=== PATIENT | female | born 1975 | race Caucasian/White ===

== ENCOUNTER 2017-01-21 18:39 | Emergency (ER) | payer MEDICAID ==
--- NOTE | ~2017-01-21 | ENPV ---
Vascular Lower Extremities DVT Study Procedure Demographics Patient Name JOHAN GUTHRIE Date of Study 01/21/2017 Patient Number [id number] Gender Female Date of 1975 Age 41 Visit Number [id number] Height Accession Number [id number] Weight Room Number BSA BMI Referring Saroj Lindsay MD Interpreting Mayito Littlejohn MD Physician Physician Physician Ordering Physician Kimberlee Pang MD Quill Worker Raw Sampler Missy Painting T, [facility] [place] Conclusions Summary Normal venous duplex examination of the legs bilaterally with normal venous Doppler signals noted throughout. No evidence of thrombophlebitis is noted bilaterally in the deep and superficial veins of the legs. Small calf thrombi cannot be excluded. Procedure Type of Study: Veins:Lower Extremities DVT Study, Venous Duplex Lower Extremity Bilateral. Appropriate Use Criteria:5 Patient Status:STAT. Study Location:ER. Technical Quality:Adequate visualization. - Preliminary reported to:Dr. Mohan. Velocities are measured in cm/s ; Diameters are measured in cm Right Lower Extremities DVT Study Measurements Right 2D and Doppler Measurements + + + + +------+------+ + !Location !Visualized!Compressibility!Thrombosis!Signal!Reflux!Reflux ! ! ! ! ! ! ! !(sec) ! + + + + +------+------+ + !GSV Thigh !Yes !Yes !None !Phasic! ! ! + + + + +------+------+ + !Common !Yes !Yes !None !Phasic! ! ! !Femoral ! ! ! ! ! ! ! + + + + +------+------+ + !Prox !Yes !Yes !None !Phasic! ! ! !Femoral ! ! ! ! ! ! ! + + + + +------+------+ + !Mid Femoral!Yes !Yes !None !Phasic! ! ! + + + + +------+------+ + !Dist !Yes !Yes !None !Phasic! ! ! !Femoral ! ! ! ! ! ! ! + + + + +------+------+ + !Popliteal !Yes !Yes !None !Phasic! ! ! + + + + +------+------+ + !PTV !Yes !Yes !None !Phasic! ! ! + + + + +------+------+ + !Peroneal !Yes !Yes !None !Phasic! ! ! + + + + +------+------+ + Left Lower Extremities DVT Study Measurements Left 2D and Doppler Measurements + + + + +------+------+ + !Location !Visualized!Compressibility!Thrombosis!Signal!Reflux!Reflux ! ! ! ! ! ! ! !(sec) ! + + + + +------+------+ + !GSV Thigh !Yes !Yes !None !Phasic! ! ! + + + + +------+------+ + !Common !Yes !Yes !None !Phasic! ! ! !Femoral ! ! ! ! ! ! ! + + + + +------+------+ + !Prox !Yes !Yes !None !Phasic! ! ! !Femoral ! ! ! ! ! ! ! + + + + +------+------+ + !Mid Femoral!Yes !Yes !None !Phasic! ! ! + + + + +------+------+ + !Dist !Yes !Yes !None !Phasic! ! ! !Femoral ! ! ! ! ! ! ! + + + + +------+------+ + !Popliteal !Yes !Yes !None !Phasic! ! ! + + + + +------+------+ + !PTV !Yes !Yes !None !Phasic! ! ! + + + + +------+------+ + !Peroneal !Yes !Yes !None !Phasic! ! ! + + + + +------+------+ + Signature dtt: GABBI PAIGE dtd: 01/21/172025 Physician Self Edit
--- NOTE | ~2017-01-21 | ER ---
PATIENT'S NAME: JOHAN GUTHRIE [facility] AGE: 41 Y [address] ROOM: [place] [address] LOCATION: ED ADMIT DATE: 01/21/2017 ER/Outpatient Report DISCHARGE DATE: 01/21/2017 FAMILY PHYSICIAN: Brian Kyle MD ATTENDING PHYSICIAN: Bird Mohan Time of Arrival: 1839 hours. Time of Evaluation: 1842 hours. CHIEF COMPLAINT: Shortness of breath and cough. HISTORY OF PRESENT ILLNESS: The patient is a 41-year-old female who presents to the Emergency Department today with a chief complaint of shortness of breath and cough. She also complains of chest pain in the center of her chest, it is worse when she coughs, it feels like a tightness. She reports some nausea, no vomiting. Denies any fevers or chills. She reports that the cough has been going on for more than a month now. She has been on azithromycin as well as Levaquin and multiple steroids without any relief. Denies any headache. No back pain. No abdominal pain. PAST MEDICAL HISTORY: Bipolar, hypertension, asthma, and migraines. PAST SURGICAL HISTORY: Appendectomy, x3, and ankle. SOCIAL HISTORY: The patient smokes for 34 years. Denies any alcohol or illicit drug use. ALLERGIES: ALLERGIES TO PENICILLIN, CEPHALOSPORINS, NSAIDS, ANTACIDS, ASPIRIN, AND GI MEDS. MEDICATIONS: 1. Albuterol. 2. Advair. 3. Combivent. 4. Invega. 5. Singulair. 6. Benadryl. PRIMARY CARE DOCTOR: Brian Kyle MD. PATIENT'S NAME: JOHAN GUTHRIE [facility] AGE: 41 Y [address] ROOM: [place] [address] LOCATION: ED ADMIT DATE: 01/21/2017 ER/Outpatient Report DISCHARGE DATE: 01/21/2017 FAMILY PHYSICIAN: Brian Kyle MD ATTENDING PHYSICIAN: Bird Mohan REVIEW OF SYSTEMS: All systems are reviewed by myself and are negative with the exception of those discussed in HPI and past medical history. PHYSICAL EXAMINATION: VITAL SIGNS: Weight 158.2, blood pressure 191/62, pulse 96, respiratory rate 20, temperature 98.7, and oxygen saturation 98% on room air. GENERAL: The patient is a 41-year-old female, appears stated age, obese, in no acute distress at this time. HEENT: Normocephalic, atraumatic. Pupils are equal, round, and reactive to light. Nares with clear discharge bilaterally. TMs are clear. Oropharynx is clear. NECK: Supple. There is no nuchal rigidity. CARDIOVASCULAR: Regular rate and rhythm. No murmurs, rubs, or gallops. LUNGS: With mild to moderate expiratory wheezes diffusely bilaterally. ABDOMEN: Soft, nontender, and nondistended. No rebound, rigidity, or guarding. Positive bowel sounds. MUSCULOSKELETAL: The patient moves all 4 extremities. SKIN: Warm and dry with no rashes or lesions noted. LABORATORY DATA AND X-RAYS: Labs and x-rays are obtained. CBC is normal. Coags are normal. D-dimer is 0.91. CMP is normal. LFTs normal. Magnesium is normal. Cardiac enzymes are normal. EKG is obtained and is interpreted by myself at 1926 hours shows sinus rhythm with a rate of 97, normal axis, normal interval. No ST elevation, ST depression, or T-wave inversions. ProBNP is 242. CT scan of the chest was obtained, PE study, I have discussed the results with the radiologist shows no evidence of PE. There is bronchial wall thickening noted. Bilateral venous Dopplers are negative for DVT. IMPRESSION: 1. Acute on chronic bronchitis. 2. Chest pain, likely secondary to acute on chronic bronchitis. 3. Initial visit. EMERGENCY DEPARTMENT COURSE: The patient was brought back to the examination room. Seen and evaluated by myself. IV is established. Laboratory analysis, imaging, and EKG are obtained as described above. The patient is given a DuoNeb breathing treatment. She is given 125 mg of Solu-Medrol IV. This has resulted in improvement of the patient's symptoms. I have discussed the results with the patient. I have recommended a close followup with Dr. Brian Kyle in 2-3 days for reevaluation. I have also asked she follows up with a welding production supervisor, she is to call for an appointment. I have written a prescription for PATIENT'S NAME: JOHAN GUTHRIE [facility] AGE: 41 Y [address] ROOM: [place] [address] LOCATION: ED ADMIT DATE: 01/21/2017 ER/Outpatient Report DISCHARGE DATE: 01/21/2017 FAMILY PHYSICIAN: Brian Kyle MD ATTENDING PHYSICIAN: Bird Mohan prednisone as well as Phenergan with codeine. I have discussed return to care instructions including worsening symptoms or any other concerns, return to the emergency department as soon as possible. The patient is agreeable without further questions. DISPOSITION: The patient discharged home in good condition. DO JACINTA RUDOLPH/modl /[id number] d: 01/22/17 0357 t: 01/25/17 1810, OUTPATIENT REPORT
[2017-01-21 19:15] LABS: BASOPHIL # 0.1 K/uL (0.0-0.2); EOSINOPHIL # 0.3 K/uL (0.0-0.5); EOSINOPHIL % 3.7 %; HEMATOCRIT 42.8 % (33.0-46.0); HEMOGLOBIN 14.2 g/dL (10.0-15.0); IMMATURE GRANULOCYTE % 0.5 %; LYMPHOCYTE # 1.9 K/uL (0.8-4.0); LYMPHOCYTE % 23.6 %; MCH 30.3 pg (27.0-34.0); MCHC 33.2 gm/dL (32.0-36.5); MCV 91.3 fl (83.0-98.0); MONOCYTE # 0.6 K/uL (0.0-1.0); MONOCYTE % 7.8 %; MPV 10.3 fl (9.4-12.4); NEUTROPHIL % 63.4 %; NRBC % 0 /100WBC (0-0.00); PLATELET COUNT 291 K/uL (150-450); RBC 4.69 M/uL (3.50-5.50); RDW-CV 14.9 % (11.9-14.6); WBC 7.9 K/uL (4.0-11.0)
[2017-01-21 19:27] LABS: PROTIME 9.4 SECONDS (9.8-11.4); PTT 32 SECONDS (25-32)
[2017-01-21 19:34] LABS: ALBUMIN 3.3 gm/dL (3.5-5.0); ALK PHOS 84 IU/L (33-138); ALT 27 IU/L (12-78); AST 20 IU/L (10-40); BLOOD UREA NITROGEN 11 mg/dL (6-24); CALCIUM 8.8 mg/dL (8.5-10.5); CHLORIDE 108 mMol/L (96-110); CO2 28 mMol/L (22-32); CPK 118 IU/L (21-215); CREATININE 0.9 mg/dL (0.5-1.1); ESTIMATED GFR (MDRD EQUATION) > 60; MAGNESIUM 2.1 mg/dL (1.8-2.6); SODIUM 144 mMol/L (135-145); TOTAL BILIRUBIN 0.2 mg/dL (0.0-1.5); TOTAL PROTEIN 7.2 g/dL (6.0-8.4)
[2017-03-11] MEDS ORDERED: NORCO 10-325 T1 EACH PO (08:30)
[2017-03-11] MEDS ORDERED: KLONOPIN1 MG PO (08:52)
[2017-03-11] MEDS ORDERED: SINGULAIR10 MG PO (08:53)
[2017-03-11] MEDS ORDERED: PROVENTIL OR V6.7 GM INH (08:53)
[2017-03-11] MEDS ORDERED: FLEXERIL10 MG PO (08:53)
[2017-03-11] MEDS ORDERED: ADVAIR 500-501 EACH INH (08:53)
[2017-03-11] MEDS ORDERED: CPAP INH (08:55)
[2017-03-11] MEDS ORDERED: INVEGA9 MG PO (09:10)
[2017-03-11] MEDS ORDERED: IMITREX100 MG PO (09:10)
[2017-03-11] MEDS ORDERED: COMBIVENT RESPIM4 GM INH (09:10)
[2017-03-11] MEDS ORDERED: ALBUTEROL2.5 MG/31 INH (09:12)
[2017-03-11] MEDS ORDERED: NIZORAL120 ML TOP (09:14)
== END 2017-01-21 21:27 | disposition disaster alternative care site (69) ==
LOC: GMED 18:39
PROVIDERS: Emergency Medicine
DX: J20.9 Acute bronchitis, unspecified (principal); J42 Unspecified chronic bronchitis; R07.9 Chest pain, unspecified; F31.9 Bipolar disorder, unspecified; I10 Essential (primary) hypertension; J45.909 Unspecified asthma, uncomplicated; Z90.49 Acquired absence of other specified parts of digestive tract; Z98.890 Other specified postprocedural states; Z88.1 Allergy status to other antibiotic agents; Z88.8 Allergy status to other drugs, medicaments and biological substances; Z88.0 Allergy status to penicillin; Z79.899 Other long term (current) drug therapy
CPT/HCPCS: J2930; Q9967

== ENCOUNTER 2017-02-19 07:32 | Emergency (ER) | payer MEDICAID ==
--- NOTE | ~2017-02-19 | ER ---
PATIENT'S NAME: JOHAN [facility] AGE: 41 Y [address] ROOM: [place] [address] LOCATION: ED ADMIT DATE: 02/19/2017 ER/Outpatient Report DISCHARGE DATE: 02/19/2017 FAMILY PHYSICIAN: Brian Kyle MD ATTENDING PHYSICIAN: Soraya Daniels Time of arrival: 0732 hours. Time of Evaluation: 0750 hours. IDENTIFICATION: A 41-year-old female. CHIEF COMPLAINT: Back pain. HISTORY OF PRESENT ILLNESS: The patient is a 41-year-old female, who lives in [place] but sees Dr. Brian Kyle, who presents with back pain that she has had since Thursday. She was seen in the emergency room in [place] and given Percocet. Continues to have 10/10 constant low back pain. Radiates slightly to both sides. No dysuria. No increased frequency of urination. No numbness, tingling, or weakness. No injury. The patient has pain that radiates down her left leg. ALLERGIES: THE PATIENT WAS NOT AWARE OF ALLERGIES OR HER MEDICATION LIST. SHE TOLD US TO LOOK IT UP. OLD RECORDS REFLECT ALLERGIES TO PENICILLIN, CEPHALOSPORINS, NON- STEROIDALS, ANTACIDS, ASPIRIN, AND SOME SORT OF GI MEDICATION. SHE SAID SHE KNOWS SHE IS ALLERGIC TO TORADOL, DARVOCET, AND ULTRAM. CURRENT MEDICATIONS: 1. Percocet. 2. Norflex. 3. Albuterol. 4. Advair. 5. Combivent. 6. Invega. 7. Singulair. 8. Benadryl. MEDICAL PROBLEMS: Asthma, bipolar disorder, migraine headaches, anxiety. PRIOR SURGERIES: Endometrial ablation, appendectomy, section, and ankle surgery. PATIENT'S NAME: J[facility]AN [facility] AGE: 41 Y [address] ROOM: [place] [address] LOCATION: ED ADMIT DATE: 02/19/2017 ER/Outpatient Report DISCHARGE DATE: 02/19/2017 FAMILY PHYSICIAN: Brian Kyle MD ATTENDING PHYSICIAN: Soraya Daniels SOCIAL HISTORY: The patient is . Lives in [place]. She is unemployed. Tobacco use, 4 cigarettes daily. Alcohol use denies. Drug use, denies. REVIEW OF SYSTEMS: All systems reviewed and negative other than what is noted in the HPI. PHYSICAL EXAMINATION: VITAL SIGNS: Weight 163.9 kg, blood pressure 152/78, pulse 77, respirations 24, temperature 97.7, sats 97%. GENERAL: A 41-year-old female, in obvious distress. HEENT: Unremarkable. LUNGS: Clear to auscultation. HEART: Regular rate and rhythm. ABDOMEN: Soft, nondistended, nontender. SKIN: [place], warm, and dry. No lesions or rashes noted. NEURO: The patient is alert and oriented x4. Cranial nerves 2 through 12 grossly intact. Motor strength 5/5 throughout. Sensation is intact to light touch. No lower extremity edema. No calf tenderness. The patient is tender to palpation lumbar spine and bilateral lumbar paraspinal muscles. No palpable deformities. LABORATORY DATA AND X-RAYS: UA negative. Urine hCG negative. Sodium 143, potassium 3.8, chloride 109, CO2 of 28, BUN 13, creatinine 0.9, blood sugar 87. Liver enzymes normal. CRP 1.83. Hemoglobin 12.9, hematocrit 40.5, platelets 262, white count 6.6, normal differential, sedimentation rate 39. CT lumbar spine, mild degenerative changes. No acute findings. IMPRESSION AND PLAN: Low back pain with radiculopathy. Percocet as directed for pain. Norflex as directed for spasm, which she already has at home. Ice or heat. No lifting. Prednisone 20 mg p.o. given here in the ER, and 20 mg b.i.d. for 3 days, 15 mg b.i.d. for 2 days, 20 mg daily for 2 days, 10 mg daily for 2 days, 5 mg daily for 2 days. The patient understands and agrees, and all questions have been answered. SORAYA DANIELS MD CAR/modl PATIENT'S NAME: J[facility]AN [facility] AGE: 41 Y [address] ROOM: [place] [address] LOCATION: [facility] ADMIT DATE: 02/19/2017 ER/Outpatient Report DISCHARGE DATE: 02/19/2017 FAMILY PHYSICIAN: Brian Kyle MD ATTENDING PHYSICIAN: Soraya Daniels /[id number] d: 02/19/172125 t: 02/20/17711, OUTPATIENT REPORT
[2017-02-19 08:32] LABS: BASOPHIL % 0.6 %; EOSINOPHIL # 0.3 K/uL (0.0-0.5); EOSINOPHIL % 4.7 %; HEMATOCRIT 40.5 % (33.0-46.0); HEMOGLOBIN 12.9 g/dL (10.0-15.0); IMMATURE GRANULOCYTE % 0.6 %; LYMPHOCYTE # 1.7 K/uL (0.8-4.0); LYMPHOCYTE % 25.9 %; MCH 29.7 pg (27.0-34.0); MCHC 31.9 gm/dL (32.0-36.5); MCV 93.3 fl (83.0-98.0); MONOCYTE # 0.6 K/uL (0.0-1.0); MONOCYTE % 8.3 %; MPV 10.4 fl (9.4-12.4); NEUTROPHIL % 59.9 %; NRBC % 0 /100WBC (0-0.00); PLATELET COUNT 262 K/uL (150-450); RBC 4.34 M/uL (3.50-5.50); WBC 6.6 K/uL (4.0-11.0)
[2017-02-19 08:37] LABS: BILIRUBIN URINE NEGATIVE (NEGATIVE); BLOOD URINE 10 /UL (NEGATIVE); COLOR URINE YELLOW (YELLOW); GLUCOSE URINE NEGATIVE (NEGATIVE); KETONE URINE NEGATIVE (NEGATIVE); LEUKOCYTES URINE NEGATIVE /UL (NEGATIVE); NITRITE URINE NEGATIVE (NEGATIVE); PROTEIN URINE NEGATIVE (NEGATIVE); TURBIDITY URINE CLEAR (CLEAR); UROBILINOGEN URINE 1 mg/dL (NORMAL)
[2017-02-19 08:40] LABS: BACTERIA URINE RARE (NEGATIVE); EPITHELIAL URINE RARE #/HPF (NEGATIVE); RBC URINE 0-2 #/HPF (NEGATIVE); WBC URINE RARE #/HPF (NEGATIVE)
[2017-02-19 08:45] LABS: ALBUMIN 2.8 gm/dL (3.5-5.0); ALK PHOS 73 IU/L (33-138); ALT 18 IU/L (12-78); ANION GAP 9.8 (10.0-19.0); AST 11 IU/L (10-40); BLOOD UREA NITROGEN 13 mg/dL (6-24); CALCIUM 8.3 mg/dL (8.5-10.5); CHLORIDE 109 mMol/L (96-110); CO2 28 mMol/L (22-32); CREATININE 0.9 mg/dL (0.5-1.1); ESTIMATED GFR (MDRD EQUATION) > 60; POTASSIUM 3.8 mMol/L (3.7-5.1); SODIUM 143 mMol/L (135-145); TOTAL BILIRUBIN 0.2 mg/dL (0.0-1.5); TOTAL PROTEIN 6.4 g/dL (6.0-8.4)
[2017-03-11] MEDS ORDERED: NORCO 10-325 T1 EACH PO (08:30)
[2017-03-11] MEDS ORDERED: KLONOPIN1 MG PO (08:52)
[2017-03-11] MEDS ORDERED: ADVAIR 500-501 EACH INH (08:53)
[2017-03-11] MEDS ORDERED: FLEXERIL10 MG PO (08:53)
[2017-03-11] MEDS ORDERED: PROVENTIL OR V6.7 GM INH (08:53)
[2017-03-11] MEDS ORDERED: SINGULAIR10 MG PO (08:53)
[2017-03-11] MEDS ORDERED: CPAP INH (08:55)
[2017-03-11] MEDS ORDERED: IMITREX100 MG PO (09:10)
[2017-03-11] MEDS ORDERED: COMBIVENT RESPIM4 GM INH (09:10)
[2017-03-11] MEDS ORDERED: INVEGA9 MG PO (09:10)
[2017-03-11] MEDS ORDERED: ALBUTEROL2.5 MG/31 INH (09:12)
[2017-03-11] MEDS ORDERED: NIZORAL120 ML TOP (09:14)
== END 2017-02-19 09:30 | disposition disaster alternative care site (69) ==
LOC: GMED 07:32
PROVIDERS: Family Medicine
DX: M54.16 Radiculopathy, lumbar region (principal); J45.909 Unspecified asthma, uncomplicated; G43.909 Migraine, unspecified, not intractable, without status migrainosus; F41.9 Anxiety disorder, unspecified; F31.9 Bipolar disorder, unspecified; F17.210 Nicotine dependence, cigarettes, uncomplicated; Z88.0 Allergy status to penicillin; Z88.8 Allergy status to other drugs, medicaments and biological substances; Z79.899 Other long term (current) drug therapy
CPT/HCPCS: J2270; J7512

== ENCOUNTER → 2017-02-24 | Outpatient (CLI) | payer MEDICAID ==
[~2017-02-24] MED LIST: ADVAIR 500-501 EACH INH; ALBUTEROL2.5 MG/31 INH; COMBIVENT RESPIM4 GM INH; CPAP INH; FLEXERIL10 MG PO; IMITREX100 MG PO; INVEGA9 MG PO; KLONOPIN1 MG PO; NIZORAL120 ML TOP; NORCO 10-325 T1 EACH PO; PERCOCET 5-3251 EACH PO; PROVENTIL OR V6.7 GM INH; SINGULAIR10 MG PO
== END | disposition disaster alternative care site (69) ==
LOC: GRAD 15:38
DX: M54.9 Dorsalgia, unspecified (principal); M51.36 Other intervertebral disc degeneration, lumbar region; M51.37 Other intervertebral disc degeneration, lumbosacral region

== ENCOUNTER → 2017-03-09 | Outpatient (CLI) | payer MEDICAID | END | disposition disaster alternative care site (69) | LOC: GRAD 12:45 → GLAB 13:00 → GRAD 13:09 | DX: M25.561 Pain in right knee (principal); G89.29 Other chronic pain; Z98.890 Other specified postprocedural states ==

== ENCOUNTER 2017-03-13 06:04 | Day surgery (SDC) | payer MEDICAID ==
[~2017-03-13] VITALS: Ht 157.5 cm; Wt 158.7 kg
--- NOTE | ~2017-03-13 | OR ---
PATIENT'S NAME: JOHAN TORO [facility] AGE: 41 Y [address] ROOM: [place] [address] LOCATION: [facility] [place] ADMIT DATE: 03/13/2017 OR/Procedure Report DISCHARGE DATE: FAMILY PHYSICIAN: Brian Kyle MD ATTENDING PHYSICIAN: Sukhi Sepulveda SURGEON: Sukhi Sepulveda MD JAVA SECURITY ENGINEER: DATE OF PROCEDURE: 03/13/2017 DIAGNOSIS: Left carpal tunnel syndrome. PROCEDURE: Open left carpal tunnel release. ANESTHESIA: Local and block. INDICATION: The patient has crush syndrome with both cervical spondylosis with radiculopathy and carpal tunnel syndrome on the left. Carpal tunnel is most significant. Plan for open release of the carpal tunnel. Risks, benefits, and alternatives have been discussed, may be it will require surgical decompression as well. DESCRIPTION OF PROCEDURE: Ms Toro was taken to the operating room on clindamycin prophylaxis block and local anesthetic. Tourniquet high about the left upper extremity. Left arm was prepared with DuraPrep, draped sterilely. Arm was exsanguinated. Tourniquet inflated to 250 mmHg. A 2 cm incision was made on the ulnar side of the thenar crease, distal to the wrist flexor crease. Dissection through subcutaneous tissue to the palmar fascia. Soft tissues were elevated off the palmar fascia. Palmar fascia was divided in line with the ring finger. Dissection through the transverse carpal ligament, down to the median nerve. The Cyrus retractor was placed subcutaneously proximally. Palmar fascia and antebrachial cutaneous fascia was released proximally, completely decompressing the nerve. Distally palmar fascia was released as well. Nerve was completely decompressed. Palpation within the carpal tunnel. There was no space-occupying masses. Hemostasis with the bipolar. Irrigated with a bulb syringe. The skin was closed with a 3-0 nylon vertical mattress suture, Xeroform, dry dressing, volar splint with approximately 50 degrees of dorsiflexion. Procedure was done without complication. ESTIMATED BLOOD LOSS: From the procedure is nil. FLUID REPLACEMENT: Crystalloids. SPECIMENS: None. PATIENT'S NAME: JOHAN TORO [facility] AGE: 41 Y [address] ROOM: [place], [place] [address] LOCATION: [facility] [place] ADMIT DATE: 03/13/2017 OR/Procedure Report DISCHARGE DATE: FAMILY PHYSICIAN: Brian Kyle MD ATTENDING PHYSICIAN: Sukhi Sepulveda DRAINS: None. Tourniquet time approximately 20 minutes to recovery room in stable condition. Ice, elevate, Percocet for the new surgical pain for several days, work on range of motion of fingers, splint care, scheduled to follow up with Dr. Sepulveda on March 23, 2017, at 1 o'clock p.m. SUKHI SEPULVEDA MD DPM/maryjo /[id number] d: 03/13/17 1333 t: 04/01/17 1003, OPERATIVE SUMMARY
[~2017-03-13 06:04] MED LIST changes: -PERCOCET 5-3251 EACH PO
[2017-03-13] MEDS ORDERED: PERCOCET 5-3251 EACH PO (09:04)
== END 2017-03-13 09:59 | disposition disaster alternative care site (69) ==
LOC: GSDC 06:04 → GPOC 06:30 → GSDC 09:59 → GPOC 13:00
PROC: 01N50ZZ Release Median Nerve, Open Approach (ICD-10-PCS; principal; 2017-03-13)
DX: G56.02 Carpal tunnel syndrome, left upper limb (principal); M47.22 Other spondylosis with radiculopathy, cervical region; M54.5 Low back pain; G43.909 Migraine, unspecified, not intractable, without status migrainosus; F41.9 Anxiety disorder, unspecified; F32.9 Major depressive disorder, single episode, unspecified; J44.9 Chronic obstructive pulmonary disease, unspecified; G47.30 Sleep apnea, unspecified; L40.9 Psoriasis, unspecified; Z98.890 Other specified postprocedural states; E66.01 Morbid (severe) obesity due to excess calories; F25.0 Schizoaffective disorder, bipolar type; Z98.51 Tubal ligation status; Z90.49 Acquired absence of other specified parts of digestive tract; Z79.899 Other long term (current) drug therapy; Z88.8 Allergy status to other drugs, medicaments and biological substances; Z88.0 Allergy status to penicillin; Z88.5 Allergy status to narcotic agent; Z88.1 Allergy status to other antibiotic agents; Z99.89 Dependence on other enabling machines and devices
CPT/HCPCS: J2001; J2250; J7120